=== PATIENT | female | born 1950 ===

== ENCOUNTER 2023-06-20 00:05 | Emergency (ER) | payer OTHER, SELFPAY ==
[2023-06-20 00:09] VITALS: BP 181/82
[2023-06-20 00:10] VITALS: BMI 32.3
[2023-06-20 00:25] LABS: % Basophils 0.4 % (0-2); % Eosinophils 3.6 % (0-6); % Immature Granulocytes 0.3 % (0-0.5); % Lymphocytes 37.7 % (20.5-51.1); Absolute Eosinophils 0.3 10^3/uL (0-0.7); Absolute Lymphocytes 2.6 10^3/uL (1.2-3.4); Absolute Monocytes 0.6 10^3/uL (0.1-0.6); Absolute Neutrophils 3.5 10^3/uL (1.4-6.5); Hematocrit 36.9 % (37.0-47.0); Hemoglobin 12.4 g/dL (12.0-16.0); Mean Corp Hgb Conc. 33.6 g/dL (33.0-37.0); Mean Corpuscular Hgb 29.7 pg (27.0-31.0); Mean Corpuscular Volume 88.5 fL (81.0-99.0); Mean Platelet Volume 10.8 fL (7.4-10.4); Nucleated Red Blood Cells % 0 %; Platelet Count 236 10^3/uL (130-400); Red Blood Cell Count 4.17 10^6/uL (4.20-5.40); Red Cell Dist. Width 13.2 % (11.5-14.5)
[2023-06-20 00:40] LABS: ALT (SGPT) 19 U/L (0-35); AST (SGOT) 24 U/L (14-36); Alkaline Phosphatase 76 U/L (38-126); Blood Urea Nitrogen 21 mg/dl (7-17); Calcium 9.7 mg/dl (8.4-10.2); Carbon Dioxide 28 mmol/L (22-30); Chloride 104 mmol/L (98-107); Estimated Creatinine Clearance 82 ml/min; Glucose 140 mg/dl (70-99); Potassium 3.5 mmol/L (3.5-5.1); Sodium 141 mmol/L (135-145); Total Bilirubin 0.2 mg/dl (0.2-1.3); Total Protein 6.7 g/dl (6.3-8.2); eGFR > 60.00
[2023-06-20 01:00] VITALS: BP 137/90
[2023-06-20 01:02] LABS: Troponin I < 0.012 ng/ml
--- NOTE | 2023-06-20 01:52 | ED.GENMED ---
History of Present Illness
General
Chief Complaint: Chest Pain
Source: patient and ambulance crew
Exam Limitations: none
Time Seen by Provider: 06/20/23 01:51
Nursing documentation reviewed up to this point in time: agreed with
Travel History
Have you had any contact with someone who has COVID-19?: No
Do you have any symptoms of coronavirus? Fever > 100 degrees, chills, cough, shortness of breath, sore throat, loss of taste or smell, muscle aches, or headache?: No
History of Present Illness
History of Present Illness:
72-year-old female who presents with history of pain and heartburn. Patient states that for the last week she has been having abdominal discomfort. Tonight it moved up into her chest. She does have a history of hiatal hernia. She has been unable
to eat normal meals over the last few days. Her son is a cardiothoracic surgeon who requests that she get a CT angio of the chest and a CT abdomen and pelvis with IV contrast. Patient is concerned and request these studies. She did take 1 mg of
Ativan prior to arrival.
Vital signs are stable. Patient not hypoxic
Nursing note reviewed. I agree with nursing documentation up to this point in time.
Home Meds and allergies reviewed.
NUMBER AND COMPLEXITY OF PROBLEMS ADDRESSED AT THE ENCOUNTER
� Chronic conditions affecting care:
� Acute Exacerbation and/or Progression of Chronic Illness:
� Differential Diagnosis includes:
AMOUNT AND/OR COMPLEXITY OF DATA TO BE REVIEWED AND ANALYZED
I performed an independent evaluation of the following and my interpretation is:
EKG: Initial EKG taken at 12:11 AM shows sinus rhythm rate of 95 with normal intervals, normal axis. No evidence of acute ischemia present. No old EKG available for comparison.
CT:
CT ANGIOGRAM CHEST WITH CONTRAST
CT ABDOMEN PELVIS WITH CONTRAST
COMPARISON: None
IMPRESSION:
CTA CHEST:
Technically adequate examination for pulmonary embolus. No evidence of pulmonary embolus to the segmental level.
Thoracic aorta is normal in caliber. Left atrium enlargement. Moderate calcified three-vessel coronary artery disease.
Bilateral upper lobe tree-in-bud nodularity with pulmonary mosaic attenuation. Mild bronchial wall thickening. Findings are suspicious for infectious bronchiolitis. No consolidation to indicate pneumonia. Also consider mycobacterial infection in
the appropriate clinical setting.
No lymphadenopathy.
No concerning bone finding.
ABDOMEN PELVIS:
There is a deep 8mm diameter duodenal ulcer seen best on abdominal axial image 20, coronal image 18 with moderate associated inflammation. No perforation. Endoscopy recommended
Prominent bilateral inguinal nodes may be reactive.
No evidence of diverticulitis or colitis. Normal appendix. No bowel obstruction. No free air.
No obstructive uropathy.
Moderate atherosclerosis of the abdominal aorta with ectasia to 2.6 cm.
X-rays: Chest x-ray is negative
Ultrasound:
Laboratory Studies: Normal troponin
Other:
Review of other/old records: No old records
Clinical information was obtained by an independent historian:
Prescriptions/Medications Considered but not given:
Further testing considered but not performed:
RISK OF COMPLICATIONS AND/OR MORBIDITY OR MORTALITY OF PATIENT MANAGEMENT
Social determinants of health affecting care: Good Social Support
Discussion with other providers: Son is a cardiothoracic surgeon who requested CT scanning
Escalation of care including admission/observation vs risk of discharge considered:
CRITICAL CARE NOTE: Not applicable
Total Time (exclusive of procedures):
Update:
Review of Systems
Review of Systems
Allergies reviewed?: Yes
Other source history: family
All Other Systems: ROS reviewed and negative except as documented in HPI and ROS
Constitutional: Reports no symptoms
EENT: Reports no symptoms
Respiratory: Reports cough
Cardiac: Reports no symptoms
ABD/GI: Reports abdominal pain and nausea
: Reports no symptoms
Musculoskeletal: Reports no symptoms
Skin: Reports no symptoms
Neurological: Reports no symptoms
Endocrine: Reports no symptoms
Hematologic/Lymphatic: Reports no symptoms
Psychiatric: Reports no symptoms
Phy Exam
General Physical Exam
General Presentation: well appearing and no apparent distress
General Skin: warm and dry
General Habitus: normal
General Mental: alert
General Hydration: appears well hydrated
ENT Exam
ENT Exam: EOMI, pharynx normal, neck supple and normocephalic
Eye Exam
Eye Exam: PERRL, cornea clear and conjunctiva normal
Cardiovascular Exam
Cardiovascular Exam: regular rate/rhythm, no edema, no murmur and normal peripheral pulses
Pulmonary Exam
Pulmonary Exam: lungs clear, no respiratory distress, no rales, no crackles, no rhonchi, no stridor, no wheezing and no cough
Gastrointestinal Exam
Gastrointestinal Exam: normal bowel sounds, non tender, soft, no organomegaly, no pulsatile mass and non distended
Neurological Exam
Neurological Exam: alert, oriented x3, no motor deficits and speech normal
Musculoskeletal Exam
Musculoskeletal Exam: full ROM and no edema
Skin Exam
Skin Exam: normal color, warm/dry, no rash and no petechia
Psychiatric Exam
Psychiatric Exam: normal mood/affect
Scores
Heart Score for Chest Pain Patients
STEMI patient?: No
History: Slightly or Non-Suspicious
ECG: Normal
Age: >45 - <65 years
Risk Factors: 1 or 2 Risk Factors
Troponin: </= Normal Limit
Heart Score for Chest Pain Patients: 2
Heart Score Risk: 2.5% MACE over next 6 weeks
Course
Orders/Labs/Results
Orders:
Orders
06/20/23 00:08
Electrocardiogram (*1) Urgent
Reason for Study: Chest Pain
CR Chest - 2 Views Urgent
Comment:
Reason For Exam: chest pain
06/20/23 00:09
EKG- Treatment ONCE
06/20/23 00:17
Complete Blood Count/With Diff Urgent
Comprehensive Metabolic Panel Urgent
Troponin I Urgent
06/20/23 01:52
EKG- Treatment ONCE
06/20/23 01:59
CT Pe/abd/pel W Urgent
Reason For Exam: dyspnea, cp
06/20/23 03:40
Pantoprazole [Protonix] 40 mg PO NOW STA
06/20/23 03:41
Azithromycin [Zithromax] 500 mg PO NOW STA
Abnormal Lab Results
06/20/23
00:17
RBC 4.17 L 10^6/uL
(4.20-5.40)
Hct 36.9 L %
(37.0-47.0)
MPV 10.8 H fL
(7.4-10.4)
BUN 21 H mg/dl
(7-17)
Glucose 140 H mg/dl
(70-99)
06/20/23 00:17
06/20/23 00:17
Vital Signs
Initial and Last Documented VS:
Initial Vital Signs
Pulse Resp
94 22
06/20/23 00:08 06/20/23 00:08
Last Documented Vital Signs
Temp Pulse Resp BP Pulse Ox
98.0 F 72 18 129/86 95
06/20/23 00:10 06/20/23 03:57 06/20/23 03:57 06/20/23 03:57 06/20/23 03:57
*Critical Care Note
Total Time (30-74mins, 75-104mins- exclusive of procedures): Not Applicable
ED Attending Note
-
Portions of this chart may have been created with voice recognition software.� Occasional wrong word or��sound alike� substitutions may have occurred due to the inherent limitations of voice recognition software.
Discharge Plan
Departure
Patient Disposition: Home (Routine Discharge)
Date of Disposition: 06/20/23
Time of Disposition: 03:36
Patient with high blood pressure during this ER visit?: Yes
Discharge Problem:
Duodenal ulcer, Bronchiolitis
Instructions: Acid Reflux and GERD in Adults (DC), Bronchiolitis (DC), BLOOD PRESSURE
Prescriptions:
New
azithromycin 250 mg tablet
250 mg PO DAILY 4 Days Qty: 4 0RF
pantoprazole [Protonix] 40 mg tablet,delayed release (DR/EC)
40 mg PO DAILY Qty: 14 0RF
Referrals:
[facility] [Provider Group]
Timo Diaz MD [Family Provider] -
Activity Restrictions/Additional Instructions:
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 An endoscopy may be needed. Start your azithromycin on Tuesday. Continue to take the Protonix as directed.
Your prescriptions were sent to the pharmacy as discussed.
It was a pleasure meeting you and taking part in your care. We hope for your continued healing and wellness.
Please read discharge instructions in their entirety. However, they are for general education and may not describe your exact diagnosis at discharge. Information on your ER visit and medical conditions were discussed with you along with appropriate
follow up information...
If indicated, please take your medications as instructed and indicated on discharge paperwork.
Please schedule a follow up appointment as directed. Call to schedule an appointment
Please return to the emergency department with ANY change in, persisting, or worsening of symptoms. If any of your symptoms do not improve, or persist, or become more severe within 6-12 hours, please return to the emergency department for further
care.
Please return to the emergency department if you develop a headache, neck pain/stiffness, fever greater than 100.4F, chest pain, shortness of breath, persistent nausea, vomiting, slurred speech, difficulty walking, numbness/tingling, weakness, signs
of infection or any other symptoms that are worrisome to you.
If you have any questions or concerns please do not hesitate to call the Hospital at or E-mail me directly at [email or web address]
Interventions
Interventions:
*Risk Screen - Suicide Last Done: 06/20/23 00:10
*General Assessment Last Done: 06/20/23 00:10
*Neglect/Abuse Screening Last Done: 06/20/23 00:10
ED- Fall Risk Assessment Last Done: 06/20/23 01:36
*ED COVID-19 Vaccine History Last Done: 06/20/23 01:41
*Nursing Disposition Last Done: 06/20/23 04:04
ED- Cardiac Assessment Last Done: 06/20/23 01:36
Discharge Date and Time
Discharge Date/Time: 06/20/23 04:09
[2023-06-20 02:01] VITALS: BP 154/88
[2023-06-20 03:00] VITALS: BP 144/94
[2023-06-20 03:57] VITALS: BP 129/86
[2023-06-20] MEDS: PROTONIX 40 MG PO (04:03)
[2023-06-20] MEDS: ZITHROMAX 500 MG PO (04:03)
== END 2023-06-20 04:09 | disposition home or self-care (01) ==
LOC: EMR 00:05
PROVIDERS: EMERGENCY PHYSICIAN Student in an Organized Health Care Education/Training Program; FAMILY PHYSICIAN Family Medicine
DX: K26.9 Duodenal ulcer, unspecified as acute or chronic, without hemorrhage or perforation (principal); J21.9 Acute bronchiolitis, unspecified; R03.0 Elevated blood-pressure reading, without diagnosis of hypertension; I25.10 Atherosclerotic heart disease of native coronary artery without angina pectoris
CPT/HCPCS: 99285; 71046; 71275; 74177; 80053; 84484; 85025; 93005; Q9967